=== PATIENT | male | born 1955 | race American Indian/Alaskan Native ===

== ENCOUNTER 2016-09-03 05:55 | Day surgery (SDC) | payer BC, OTHER ==
--- NOTE | 2016-08-29 09:02 | Anesthesia Consultation ---
Anesthesia Consult and Med Hx Date of service: 09/03/16 - Airway Anesthetic Teeth Evaluation: Good ROM Head & Neck: Adequate Mental/Hyoid Distance: Adequate Mallampati Class: Class III Intubation Access Assessment: Possibly Difficult - Pulmonary Exam CTA: Yes - Pre-Operative Health Status ASA Pre-Surgery Classification: ASA2 Proposed Anesthetic Plan: General - Pulmonary Hx Sleep Apnea: Yes (2YRS) - Cardiovascular System Hx Hypertension: Yes (10YRS)
[~2016-09-03 05:55] MED LIST: ANCEF/STERILE WATER 2 GM/20 ML 2 GM/20 ML SYRINGE IV NR; LACTATED RINGERS 1,000 ML IV SCH; NORCO 5/325 PO PRN; PEPCID PO NR; VERSED IV NR
[2016-09-03] MEDS ORDERED: VERSED IV NR (06:00)
[2016-09-03] MEDS ORDERED: PEPCID PO NR (06:00)
[2016-09-03] MEDS ORDERED: NACL BACTERIOSTATIC INFILTRATI ONE (06:26)
[2016-09-03] MEDS ORDERED: DECADRON ONE (07:02)
[2016-09-03] MEDS ORDERED: ZOFRAN ONE ×2 (07:02→07:38)
[2016-09-03] MEDS ORDERED: DILAUDID ONE (07:02)
[2016-09-03] MEDS ORDERED: DIPRIVAN 10 MG/ML IV ONE (07:02)
[2016-09-03] MEDS ORDERED: XYLOCAINE MPF 2% ONE (07:02)
[2016-09-03] MEDS ORDERED: ZEMURON IV ONE (07:02)
[2016-09-03] MEDS ORDERED: QUELICIN ONE (07:02)
[2016-09-03] MEDS ORDERED: ZOFRAN IV PRN (07:10)
[2016-09-03] MEDS ORDERED: SUBLIMAZE IV PRN (07:10)
[2016-09-03] MEDS ORDERED: DILAUDID IV PRN (07:10)
--- NOTE | 2016-09-03 07:11 | Anesthesia Day of Surgery ---
Anesthesia Day of Surgery - Day of Surgery Patient Examined: Yes Patient H&P Reviewed: Yes Patient is NPO: Yes Beta Blockers: No Cardiac Clearance: No Pulmonary Clearance: No
[2016-09-03] MEDS ORDERED: XYLOCAINE 1% 20 mL ONE (07:19)
[2016-09-03] MEDS ORDERED: MARCAINE-EPI 0.5%-1:200,000 INFILTRATI ONE ×3 (07:20→07:54)
[2016-09-03] MEDS ORDERED: ePHEDrine SULFATE ONE (07:46)
[2016-09-03] MEDS ORDERED: NACL 0.9% IR ONE (07:54)
[2016-09-03] MEDS ORDERED: XYLOCAINE 1% 20 mL INFILTRATI ONE (07:54)
[2016-09-03] MEDS ORDERED: ANCEF/STERILE WATER 2 GM/20 ML IV NR (08:00)
[2016-09-03] MEDS ORDERED: ROBINUL ONE ×2 (08:18→08:23)
[2016-09-03] MEDS ORDERED: NEOSTIGMINE ONE (08:18)
[2016-09-03] MEDS ORDERED: WATER FOR IRRIG STERILE IR ONE (08:48)
--- NOTE | 2016-09-03 10:08 | Post Anesthesia Evaluation ---
- Post Anesthesia Evaluation Patient Participated: Yes Airway Patent: Yes Stable Respiratory Function: Yes Nausea/Vomiting: No Temp > 96.8F: Yes Pain Manageable: Yes Adequeate Hydration: Yes Anesthesia Complications: No Block Receding Appropriately: Not Applicable Patient on Ventilator: No
[2016-09-03 10:50] VITALS: BP 118/73
--- NOTE | 2016-09-04 19:10 | Operative Report ---
PREOPERATIVE DIAGNOSES: Abdominal pain, status post ventral hernia repair with mesh with a 2 year history of continuing and worsening abdominal pain. POSTOPERATIVE DIAGNOSES: Revealed intraabdominal adhesions with no evidence of any intraabdominal hernia. These adhesions were densely adhered to the patient's undersurface of the mesh. PROCEDURE: Laparoscopic lysis of adhesions and laparoscopic removal of the mesh material and primary closure of the anterior ventral/umbilical defect. SURGEON: Ean Stubbs MD PAPERBOARD MACHINE OPERATOR: Morgan Lucio CSA. ANESTHESIA: General. OPERATIVE TECHNIQUE: The patient was placed on the operating table in a dorsal supine position, and following satisfactory induction of general anesthesia, the abdomen was prepped using Hibiclens solution and then draped in a sterile fashion. Then, using a sharp skin knife, a skin incision was made in the right upper quadrant and a Veress needle was placed for insufflation of CO2, and a 5 mm trocar was then used with the camera inserted into it with the scope inserted into it to allow direct vision as we entered into the insufflated abdominal cavity. After we entered into the abdominal cavity, we looked around with a 45-degree scope and identified 2 of the 3 areas on the abdominal wall that we could put secondary trocars and these were placed. Further inspection revealed that the patient had several adhesive bands densely adhered to the undersurface of the previously placed mesh in the ventral umbilical area. Using the LigaSure device, these adhesions were taken down until there were no further adhesions and all bleeding was adequately controlled. Because of the patient's continued complaints of abdominal pain and his complaints of not being able to sleep on his abdominal wall, I felt that these adhesions were not the cause of his abdominal pain. We had discussed previously that if I could not find the cause of this abdominal pain, the patient wanted the mesh to be removed. We therefore grasped the mesh material and then began to serially take it down off of the peritoneal cavity until it was completely freed up. We then opened up the incision at the umbilicus, extracted the mesh material and removed it from the operative field. We then desufflated the abdominal cavity and then using the primary closure technique, we closed the fascia using a running suture of #1 PDS. Sterile dressing was applied to the wound. The patient tolerated the procedure well and was subsequently sent on to recovery room in satisfactory condition. JOB# [id number] TDD/NTS
== END 2016-09-03 11:25 | disposition home or self-care (01) ==
LOC: OR 05:55
PROVIDERS: ATTEND Specialist
DX: K66.0 Peritoneal adhesions (postprocedural) (postinfection) (principal); I10 Essential (primary) hypertension; G47.33 Obstructive sleep apnea (adult) (pediatric); Z98.890 Other specified postprocedural states
CPT/HCPCS: 49329; J0330; J0690; J1100; J1170; J2250; J2405; J2704; J2710; J7120